=== PATIENT | male | born 1960 | race African-American/Black ===

== ENCOUNTER 2023-01-22 10:26 | Outpatient (CLI) | payer BC | END 2023-01-22 10:27 | disposition home or self-care (01) | LOC: CSHRAD 10:26 | PROVIDERS: ATTEND Family Medicine | DX: M79.89 Other specified soft tissue disorders (principal) ==

== ENCOUNTER 2024-12-31 08:22 | Outpatient (CLI) | payer BC | END 2024-12-31 08:23 | disposition home or self-care (01) | LOC: CSHRAD 08:22 | PROVIDERS: ATTEND Family Medicine | DX: M76.61 Achilles tendinitis, right leg (principal) ==